=== PATIENT | female | born 2005 | race Caucasian/White ===

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

== ENCOUNTER 2024-01-25 15:38 | Outpatient (CLI) | payer BC, SELFPAY ==
--- NOTE | 2024-01-25 15:48 | ECG_ITS ---
APPROVED REPORT Exam: Resting ECG HR:65 bpm ECG Measurements Heart Rate 65 AXES RI 162 P 71 QRSd 90 QRS 101 QT 375 T 76 QTc 387 Conclusion SINUS RHYTHM WITH SINUS ARRHYTHMIA RIGHT AXIS DEVIATION [QRS AXIS > 100] ABNORMAL ECG UNCONFIRMED REPORT Electronically signed by : Sg Heredia MD 01/27/2024 14:32:06
== END 2024-01-25 23:59 ==
PROVIDERS: PCP Internal Medicine; Visit Provider Internal Medicine
DX: R07.9 Chest pain, unspecified (principal)
CPT/HCPCS: 93005

== ENCOUNTER 2025-06-08 15:00 | Outpatient (CLI) | payer BC, SELFPAY ==
--- OUTSIDE RECORDS SUMMARY | 2025-06-08 15:03 | XMS_ITS | Clinical Summary ---
[facility] Address [address] [place] [address] Care Team Providers Care Optical Instrument Inspector Name Role Phone Andreas Tucker MD Primary Care Provider [phone] Allergies No known active allergies Medications doxycycline (PERIOSTAT) 20 MG tablet Take 1 tablet by mouth Daily. 01/06/2025 Active fluconazole (DIFLUCAN) 150 MG tablet Take 1 tablet by mouth As Needed (yeast). Take one tablet now and repeat in 3 days 2 tablet 03/12/2025 Active Active Problems No known active problems Resolved Problems Problem Noted Date Diagnosed Date Resolved Date Bleeding in early 07/16/2024 07/18/2024 Encounters Date Type Department Care Team Description 03/12/2025 Results Follow-Up [facility] [address] [place] [address] Jalyn Carnes, SUPERVISOR NURSE from Last 3 Months Family History Medical History Relation Name Comments Endometriosis Mother Miscarriages / Stillbirths Mother Polycystic ovary syndrome Mother Cancer Paternal Grandmother of vagi nal cuff Breast cancer Neg Hx Ovarian cancer Neg Hx Uterine cancer Neg Hx Relation Name Status Comments Mother Paternal Grandmother Social History Tobacco Use Types Packs/Day Years Used Date Smoking Tobacco: Never Smokeless Tobacco: Never Tobacco Cessation:Counseling Given: Not Answered Alcohol Use Standard Drinks/Week Comments Not Currently 0 (1 standard drink = 0.6 oz pur e alcohol) occ. Abuse Screen Answer Date Recorded Feels Unsafe at Home or Work/School no 07/15/2024 Feels Threatened by Someone no 06/20 Does Anyone Try to Keep You From Having Contact with Others or Doing Things Outside Your Home? no 07/15/2024 Physical Signs of Abuse Present no 07/15/2024 Comments Unknown Sex and Gender Information Value Date Recorded Sex Assigned at Not on file Legal Sex Female 12:02 PM EDT Gender Identity Not on file Sexual Orientation Not on file Last Filed Vital Signs Vital Sign Reading Time Taken Comments Blood Pressure 110/64 03/05/2025 3:36 PM EDT Pulse 100 07/15/2024 11:22 PM EDT Temperature 37.1 C (98.7 F) 07/15/2024 11:22 PM EDT Respiratory Rate 18 07/15/2024 11:22 PM EDT Oxygen Saturation 99% 07/15/2024 11:22 PM EDT Inhaled Oxygen Concentration - - Weight 54.7 kg (120 lb 9.6 oz) 03/05/2025 3:36 P M EDT Height 160 cm (5' 3 ) 03/05/2025 3:36 PM EDT Body Mass Index 21.36 03/05/2025 3:36 PM EDT Plan of Treatment Health Maintenance Due Date Last Done Comments HPV VACCINES (1 - 3-dose series) 2018 MENINGOCOCCAL B VACCINE (1 o f 2 - Standard) 2019 TDAP/TD VACCINES (1 - Tdap) 2022 ANNUAL PHYSICAL 07/16/2024 HEPATITIS C SCREENING 07/16/2024 COVID-19 Vaccine (3 - 2023-2 5 season) 2024 05/04/2021, 04/13/2021 INFLUENZA VACCINE 08/19/2025 10/27/2022, 09/04/2018 Annual Gynecologic Pelvic an d Breast Exam 03/06/2026 03/05/2025 CHLAMYDIA SCREENING 03/06/2026 03/06/2025 PAP SMEAR 03/06/2028 03/06/2025 MENINGOCOCCAL VACCINE Aged Out No peter monique eligible based on patient's age to complete this topic Pneumococcal Vaccine 0-49 Aged Out No longer eligible based on patient's age to complete this topic Procedures Procedure Name Priority Date/Time Associated Diagnosis Comments LIQUID-BASED PAP SMEAR WITH HPV GENOTYPING IF ASCUS, [facility] ([facility]) Routine 03/06/2025 12:25 PM EDT Women's annual routine gynecological examination from Last 3 Months or Most Recently Relevant to Health Maintenance Results * LIQUID-BASED PAP SMEAR WITH HPV GENOTYPING IF ASCUS ([facility]) (03/06/2025 12:25 PM EDT) Pathologist [facility] Reference Lab Report [facility] [address] [place] [address] or [phone] Wero Forrester M.D., Registered Dietetic Technician PATIENT NAME [facility] NO[facility] KE[facility] SH[facility]ZZ [id number] AGE SEX SSN CLIENT REF # [id number] ([facility]) 2005 F [id number] Alfonso SHEPARD REQUESTING M.Av. [place] [address] JALYN CARNES DATE COLLECTED DATE RECEIVED DATE REPORTED 03/06/2025 03/09/2025 03/12/2025 ThinPrep Pap with [facility] DIAGNOSIS: Epithelial cell abnormality. (ASC) Atypical squamous cells of undetermined significance. COMMENT: FUNGAL ORGANISMS MORPHOLOGICALLY CONSISTENT WITH NIMA SPECIES ARE PRESENT. Professional interpretation rendered by Portillo Mackey M.D.,F.C.A.P. at [facility], [address] [place] [address]. SPECIMEN ADEQUACY: SATISFACTORY FOR EVALUATION Transformation zone is present. SOURCE OF SPECIMEN: CERVICAL/ENDOCERVI BONNIE SLIDES: 1 CLINICAL HISTORY: Women's annual routine gynecological examination Pelvic pain Encounter for screening for infections with a predominantly sexual mode of transmission HPV HR-HPV POOL: Negative The Aptima HPV assay is an in vitro nucleic acid amplification test for the qualitative detection of E6/E7 viral messenger RNA from 14 high risk types of HPV in cervical specimens. The high risk HPV types detected include: 16, 18, 31, 33, 35, 39, 45, 51, 52, 56, 58, 59, 66, 68 Chlamydia / Gonorrhea CHLAMYDIA TRACHOMATIS: Negative NEISSERIA GONORRHOEAE: Negative The Aptima Combo 2 assay is a target amplification nucleic acid probe test that utilizes target capture for the in vitro qualitative detection and differentiation of ribosomal RNA from Chlamydia trachomatis and Neisseria gonorrhoeae to aid in the diagnosis of chlamydial and gonococcal disease using the [place] system. PEST CONTROL PILOT: JOSE LOWE (ASCP) REVIEWED, DIAGNOSED AND ELECTRONICALLY SIGNED BY: Portillo Mackey M.D.,F.C.A.P. CPT CODES: [id number], [id number], [id number], [id number], [id number] 03/12/2025 12:10 PM EDT [facility] ThinPrep Vial Cervix uteri structure / Unknown Collection / Unknown 03/06/2025 12:25 PM EDT 03/06/2025 12:25 PM EDT Jalyn Carnes SUPERVISOR NURSE PATHOLOGY/CYTOLOGY ORDERA BLES Final Result [facility]
[address] [place] [address], from Last 3 Months or Most Recently Relevant to Health Maintenance Insurance Care Teams Optical Instrument Inspector Relationship Specialty Start Date End Date Andreas Tucker MD [address] [place] [address] PCP - General Internal Medicine 01/06/23
--- OUTSIDE RECORDS SUMMARY | 2025-06-08 15:03 | XMS_ITS | Encounter Summary ---
[facility] Address [address] [place] [address] Care Team Providers Care Head Of Visual Merchandising Name Role Phone Andreas Tucker MD Primary Care Provider [phone] Encounter Details Date Type Department Care Team (Late st Contact Info) Description 03/12/2025 Results Follow-Up [facility] [address] [place] [address] Jalyn Carnes, CLINICAL WRITER [address] [facility] [address] [place] [address] Social History Tobacco Use Types Packs/Day Years Used Date Smoking Tobacco: Never Smokeless Tobacco: Never Alcohol Use Standard Drinks/Week Comments Not Currently [...] on file Sexual Orientation Not on file documented as of this encounter Plan of Treatment Not on file documented as of this encounter Visit Diagnoses Not on filedocumented in this encounter Care Teams Head Of Visual Merchandising Relationship Specialty Start Date End Date Andreas Tucker MD [address] [place] [facility] [address] [place] [address] PCP - General Internal Medicine 01/06/23 documented as of this encounter
--- OUTSIDE RECORDS SUMMARY | 2025-06-08 15:03 | XMS_ITS | Data Portability ---
Author Organization [facility] Address [address] [place] [address] Assessment Encounter Date Assessment Date Assessment LastModified by Organization Details LastModified Time 08/10/2022 08/10/2022 FOLLOW UP IN 2-3 MONTHS [email or web address] Not available 08/10/2022 09:24:28 Plan of Treatment Reminders Order Date Submit Date Provider Last Modified By Organization Details Last Modified Time Details Appointments None recorded. Lab None recorded. Referral None recorded. Procedures None recorded. Surgeries None recorded. Imaging None recorded. Medication Orders doxycycline hyclate 20 mg tablet 2021 022 [facility], [address] [place] [address], [id number], 5 09:41:14 tretinoin 0.1 % topical cream 2021 022 [facility], [address] [place] [address], [id number], 5 09:41:07 cefadroxil 500 mg capsule 2017 018 [email or web address] [facility], [address] [place] [address], [id number], 2 09:12:15 Patient TargetsNo targets recorded. Patient Instructions Encounter Date Encounter Id Patient Instructions Last Modified By Organization Details Last Modified Time 01/15/2018 [id number] Risks/Benefits/O p tions/Side Effects of diagnosis and treatment discussed. UV protection and signs of skin cancer discussed [email or web address] Not available 01/15/2018 08:56:33 08/14/2018 [id number] acne in teens: care instructions [email or web address] Not available 08/14/2018 09:30:21 08/10/2022 [id number] Risks/Benefits/O p tions/Side Effects of diagnosis and treatment discussed. UV protection and signs of skin cancer discussed [email or web address] Not available 08/10/2022 09:27:53 09/17/2023 [id number] Education/alt/ri s ks/benefits/SE of Dx & Tx discussed. Daily UV protection with broad-spectrum SPF 30+ on exposed areas recommended. Pt encouraged to RTC with any new/changing lesions. [email or web address] Not available 09/13/2023 16:58:23 Reason for Referral None Reported. Problems Name Problem SNOMED Code Status Onset Date Resolution Date Notes Provider Name and Address Organization Details Recorded Time Acne vulgaris 49197991 Active 2015 From Automated Load;Provi dru: Tamica Dhillon; atus: Active Not Available [facility] 6 05:24:43 Problem Notes None recorded. Procedures Surgical History Date Name Laterality Status Provider Name and Address Organization Details Recorded Time 03/05/2025 Date of Last Pap Smear completed Latesha Wang [facility] 03/10/2025 09:46:24 Imaging Results None recorded. Procedure Notes None recorded. Medical Equipment None Reported. Allergies No known drug allergies Medications Name Sig Start Date Stop Date Status Note LastModified by Organization Details LastModified Time tretinoin 0.1 % topical cream APPLY TOPICALL Y TO FACE EVERY NIGHT AT BEDTIME active Not Available Not Available No t Available minocyclin e 100 mg capsule 1 PO BID 08/10 completed Not Available Not Available Not Available cefadroxil 500 mg capsule 1 PO BID 08/10 completed Not Available Not Available Not Available doxycyclin e hyclate 20 mg tablet TAKE TWO TABLETS BY MOUTH ONCE A DAY active not taking Not Available Not Available Not Available Tri-Sprint ec (28) 0.18 mg(7)/0.21 5 mg(7)/0.25 mg(7)-0.03 5 mg tablet TAKE DIRECTED 2018 active not taking Not Available Not Available Not Available tretinoin 0.05 % topical gel Every night at bedtime 08/10 completed Not Available Not Available Not Available Vitals Date Recorded Body weight Body mass index (BMI) Body height Systolic And Diastolic Provider Name and Address Organization Details Last Updated DateTime 03/10/2025 91537.27 g 20.9 kg/m2 162.56 cm 102/74 mm[Hg] Latesha Wang [facility] 03/10/2025 09:43:16 Social History Question Answer Notes LastModified by Organizat ion Details LastModified Time Tobacco Smoking Status [facility] 08:26:52 What Was The Date Of Your Most Recent Tobacco Screening? 03/10/2025 Information not available 03/10/2025 Has Tobacco Cessation Counseling Been Provided? No Information not available 03/10/2025 Sex: Female Functional Status Question Answer Note LastModified by Organizat ion Details LastModified Time Do you use any illicit or recreational drugs? No Information not available 03/10/2025 Do you or have you ever used any other forms of tobacco or nicotine? No Information not available 03/10/2025 What is your level of alcohol consumption? None Information not available 03/10/2025 Mental Status None recorded. Family History Nothing Reported. Medical History Condition Response Skin Cancer N Melanoma N Gynecological History Statement/Question Response Flow Moderate Date of LMP 02/15/2025 Menses Monthly N STIs/STDs N Date of Last Pap Smear 03/05/2025 Duration of Flow (days) 5 Age at Menarche 12 LMP Approximate Obstetrics History GPAL:G 1 P 0 0 1 0 Type Value Spontaneous 1 Total 1 Past Encounters Encounter ID Performer Location Encounter Start Date Encounter Closed Date Diagnosis/Indication Diagnosis SNOMED-CT Code Diagnosis ICD10 Code Diagnosis Note [id number] TAMICA DHILLON APRN [facility] [address] [place] [address] 10/18/2017 08:17:24 10/18/2017 13:20:19 Acne vulgaris 16343557 L70.0 MILD-MODER ATE FLARESTART MINOCYCLIN E 100MG BIDCONT TRETINOIN 0.05% GEL QHS [id number] YOLIE WATKINS [facility] [address] [place] [address] 01/15/2018 08:52:06 01/15/2018 09:48:12 Acne vulgaris 22835270 L70.0 IMPROVEDDE CREASE MINOCYCLIN E 100MG BID-QD TOLERATEDC ONT TRETINOIN 0.05% GEL QHS [id number] YOLIE WATKINS [facility] [address] [place] [id number] 08/14/2018 08:45:30 08/15/2018 09:02:48 Acne vulgaris 11407602 L70.0 FLARING MILD-MODER ATE OPTIONS EDUCATEHOL D MINOCYCLIN E 100MG BIDSTART CEFADROXIL 500MG BIDCONT TRETINOIN 0.05% GEL QHSDISCUSS ED COULD ADD OCPCONT BP WASH OTC TRUNK Melanocytic nevus 058845 001 D22.9 BENIGN APPEARANCE RECHECK WITH CHANGE [id number] YOLIE WATKINS [facility] [address] [place] [address] 08/10/2022 09:04:32 08/10/2022 09:29:34 Acne vulgaris 90494228 L70.0 FLARING NOT CONTROLLED DISCUSSED TX OPTIONS AND SIDE EFFETSSTAR T DOXYCYCLIN E 40MG QDRE-START TRETINOIN AT NIGHT 0.1% CREAM 2X WEEK INCREASE QHS TOLERATED FOLLOW UP IN 2-3 MONTHSDISC ONTINE M INOCYCLINE 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 Regular self-skin exams recommende d. Pt encouraged to RTC with any new/changi ng lesions. Erythema ab igne 8999258 01 L59.0 Benign reassuranc eRemove heat source which is heating pad. Recommend to wear layers if she is cold. She was not using it for back pain.Educa alexis that this will fade within time, can take months Lentiginosis 872955233 L 81.4 Benign reassuranc e Multiple b enign melanocytic nevi 227581712 D22.9 Benign reassuranc e2 nevi on upper abdomen that are raised. Benign appearance , pt states the do not bother her as far as symptoms. Discussed removal would be cosmetic and OOP cost. She will talk to her Nonni [id number] DO [facility] [address] [place] [address] 03/10/2025 09:12:29 03/10/2025 14:20:01 Contraception care education 353718579 Z30.09 Discussed OPKs and how to use along with timed intercours e. Discussed that would recommend actively trying ofr over next 6-8 months and if no positive test in that time frame, recommend returning for workup Health Concerns Section Related Observation LastModified by Organization Detai ls LastModified Time None Recorded Concern Status LastModified by Organization Details LastModified Time None Recorded Advance Directives Directive None Recorded Payers Insurance Date Sequence Insurance Name Policy Number Policy Julian Covered Member ID Julian Member ID Guarantor Name 03/10/2025 1 [place] [id number] Jamal Sweeney [id number] Kelly Sweeney 03/10/2025 2 [place] [employer] [employer] [place] [id number] Jamal Sweeney [id number] Kelly Sweeney Notes Date Note Type Note Provider Name and Address Organization Details Recorded Time 01/15/2018 text/html ESTABLISHED PTDE NIES AND 1) - C/O ACNE ON FACE AND BACK, X 2 YEARS. TX WITH TRETINOIN AND MINOCYCLINE. - PT STATES SHE HAS SEEN IMPROVEMENT. SHE ONLY HAS A FEW BREAKOUTS ON HER BACK. NO OTHER CONCERNS Denies any other new, changing, or bleeding lesions, or other rashes, Feels well, is in a good mood and has no family history of melanoma. TAMICA DHILLON APRN [address] [place], [address], [facility] 01/15/2018 09:20:40 08/14/2018 text/html ESTABLISHED CONI ENT - 1) - ACNE FOLLOW UP - PATIENT HAS BEEN TREATING WITH MINOCYCLINE 100 MG BID, AND TRETINOIN 0.05% TOPICAL GEL - MINIMAL BENEFIT. SHE IS STILL FLARING ON THE BACK AND FACE. SHE WOULD LIKE TO TRY ANOTHER TREATMENT. NO OTHER CONCERNS TODAY. 2) - PATIENT C/O LESION ON ABDOMEN X YEARS. (-)ITCH/BLEED/PAIN. NO TX Denies any other new, changing, or bleeding lesions, or other rashes. Patient feels well today and is in a good mood. Patient has no personal or family history of Melanoma. TAMICA DHILLON APRN [address] [place], [address], [facility] 08/14/2018 09:30:46 08/10/2022 text/html ESTABLISHED PT 1) PT C/O ACNE LESIONS ON X MONTHS (-)ITCH/BLEED/PAIN. PATIENT TRIED MINOCYCLINE AND USED TRETINOIN IN THE PAST 2) PT C/O LESION ON NECK X TWO MONTHS (-)ITCH/BLEED/PAIN. NO TX 3) PT C/O LESION ON ABDOMEN X YEARS (-)ITCH/BLEED/PAIN. NO TX Denies any other new, changing, or bleeding lesions, or other rashes. Patient feels well today and in a good mood. No family history of melanoma. TAMICA DHILLON APRN [address] [place], [address], [facility] 08/10/2022 13:31:26 09/17/2023 text/html Established Coni ent - Last seen 08/10/2022 with Tamica Dhillon, APRNaccompanied by sister, Fanta Patient presents to clinic today regarding lesions of concern on back. Patient states she used the heating pad. States there are no symptoms, reports it looks bad. She has a few moles to be looked at on her abdomen and under breasts. Her Nonni wants them removed. Denies any other new, changing, or bleeding lesions, or other rashes, feels well, presents in a good mood, and has no family history of melanoma. JORDANA ADEN PA-C [address] [place], [address], [facility] 09/17/2023 15:01:17 03/10/2025 text/html 19 y/o female he re to establish care and discuss why she has not become . She got without trying in June 2024 which ended in a miscarriage. Resumed menses in August and has been having regular cycles every 32-38 days and has not yet gotten . Tried OPKs for a couple months but read they were not accurate. Thinks she knows ovulation timing but has not been timing intercourse for specifically around those dates DENIS BRIGGS DO [address] [place], [address], [facility] 03/10/2025 14:12:28 OBGyn Episode No OBEpisode recorded.
== END 2025-06-08 23:59 | disposition home or self-care (01) ==
PROVIDERS: PCP Family Medicine; Visit Provider Nurse Practitioner Obstetrics & Gynecology
DX: O03.9 Complete or unspecified spontaneous abortion without complication (principal)
CPT/HCPCS: 36415; 84702